=== PATIENT | female | born 1980 | race Two or more races ===

== ENCOUNTER 2018-12-31 17:46 | Emergency (ER) | payer SELFPAY ==
[~2018-12-31] VITALS: Ht 165.1 cm; Wt 79.4 kg
--- NOTE | 2018-12-31 18:20 | NUR ---
AAOX3, CAME TO ER C/O NON RADIATING LEFT SIDED CHEST PAIN SINCE THIS AM, HX OF DVT AND PE, +NAUSEOUS. RR IS EVEN AND UNLABORED WITH NAD NOTED. SKIN IS WARM AND DRY. PLACED ON THE MONITOR. LIU JONES AT BS FOR EVAL.
[2018-12-31] MEDS ORDERED: ONDANSETRON HCL/PF 4 MG/2 ML VIAL IVP ONE (19:00)
[2018-12-31] MEDS ORDERED: CT SWABBABLE VALVE TRANS SET 1 EA INFUS.SET MC ONE (19:08)
[2018-12-31] MEDS ORDERED: IOHEXOL-350 100 ML VIAL IV ONE (19:08)
[2018-12-31] MEDS ORDERED: IV NS 0.9% 250 ML IV ONE (19:08)
--- NOTE | 2018-12-31 19:17 | NUR ---
XRAY AT BED SIDE
--- NOTE | 2018-12-31 19:24 | NUR ---
US AT BEDSIDE
[2018-12-31] MEDS ORDERED: KETOROLAC TROMETHAMINE 15 MG/ML VIAL ONE (19:29)
[2018-12-31] MEDS ORDERED: KETOROLAC TROMETHAMINE INJ 60 MG/2 ML VIAL IM ONE (19:30)
[2018-12-31] MEDS ORDERED: ASPIRIN 81 MG TAB.CHEW PO ONE (19:30)
[2018-12-31 19:35] LABS: APPEARANCE,URINE Clear (CLEAR); BILIRUBIN,URINE Negative (NEGATIVE); BLOOD, URINE Negative Ery/uL (NEGATIVE); COLOR,URINE Yellow (YELLOW); KETONES,URINE Negative (NEGATIVE); LEUKOCYTE ESTERASE ,URINE Trace (NEGATIVE); NITRITE, URINE Negative (NEGATIVE); PH,URINE 7.5 (5.0-8.0); PROTEIN,URINE Negative (NEGATIVE); UGLUCOSE Negative (NEGATIVE); UROBILINOGEN,URINE 0.2 EU/dL (0.2)
[2018-12-31 19:38] LABS: BACTERIA,URINE Few /HPF (None Seen); RBC,URINE NONE SEEN /HPF (0-2); SQUAMOUS EPITHELIAL CELL,UR Few /HPF (None Seen)
--- NOTE | 2018-12-31 19:40 | NUR ---
PT REFUSED ANY FURTHER TREATMENT AND SIGNED AMA. Patient does not wish to proceed with medical care recommended by LIU JONES. Patient given information related to possible complications, up to and including , which could occur as a result of leaving the hospital at this time. Patient verbalizes understanding of risks involved due to leaving against medical advice. Patient has signed AMA form.
[2018-12-31 19:46] VITALS: BP 140/88
== END 2018-12-31 19:47 | disposition left against medical advice (07) ==
LOC: ER 17:52
DX: R07.89 Other chest pain (principal); R07.81 Pleurodynia; M79.661 Pain in right lower leg; R00.0 Tachycardia, unspecified; R82.90 Unspecified abnormal findings in urine; Z86.718 Personal history of other venous thrombosis and embolism; Z86.711 Personal history of pulmonary embolism; Z95.4 Presence of other heart-valve replacement
CPT/HCPCS: 71045; 81001; 84703; 93005 ×2; 99284; J7050; Q9967; 81000-TC; J1885